=== PATIENT | female | born 1990 | race Caucasian/White ===

== ENCOUNTER 2024-02-17 14:22 | Emergency (ER) | payer BC ==
[~2024-02-17] VITALS: Ht 162.6 cm; Wt 63.8 kg
[2024-02-17 15:17] LABS: Urine Amorphous Crystal FEW /hpf (None Seen); Urine Bacteria FEW /hpf (None Seen); Urine Blood 2+ /uL (Negative); Urine Clarity Clear (Clear); Urine Color Colorless (Yellow); Urine Protein, UAD Negative (Negative); Urine Specific Gravity 1.014 (1.001-1.035); Urine Urobilinogen Normal (Negative); Urine WBC 5 /hpf (0 - 5)
[2024-02-17 15:26] VITALS: BP 113/76; PULSE 95; RESP 18; TEMP 99.7; O2SAT 97
[2024-02-17 15:26] LABS: Basophils # (auto) 0 10 ^3/uL (0-0.2); Basophils % (auto) 0.3 % (0.0-2.0); Eosinophils # (auto) 0 10 ^3/uL (0-0.8); Eosinophils % (auto) 0.4 % (0.0-7.0); Hematocrit 33.9 % (36.0-46.0); Hemoglobin 11.6 g/dL (12.2-16.2); Lymphocytes # (auto) 1.9 10 ^3/uL (0.4-5.4); Mean Corpuscular Hemoglobin 30.3 pg (28.0-32.0); Mean Corpuscular Hgb Conc. 34.1 g/dL (32.0-36.0); Mean Corpuscular Volume 88.9 fL (80.0-100.0); Monocytes # (auto) 0.7 10 ^3/uL (0-1.3); Monocytes % (auto) 5.9 % (0.0-12.0); Neutrophils # (auto) 9.8 10 ^3/uL (1.6-8.6); Neutrophils % (auto) 78.4 % (37.0-80.0); Red Blood Cells 3.81 10^6/uL (4.0-5.20); Red Cell Distribution Width 13.6 % (11.8-14.3); White Blood Cell 12.5 10^3/uL (4.4-10.8)
[2024-02-17 15:34] LABS: Anion Gap 3 (5-15); Carbon Dioxide 27 mmol/L (20-30); Chloride 107 mmol/L (98-107); Potassium 3.6 mmol/L (3.5-5.1); Sodium 137 mmol/L (136-145)
[2024-02-17 15:35] LABS: Calcium 9.5 mg/dL (8.5-10.1)
[2024-02-17 15:39] LABS: Glucose 100 mg/dL (74-106)
[2024-02-17 15:40] LABS: BUN/Creatinine Ratio 12.7 (10.0-20.0); Blood Urea Nitrogen 8 mg/dL (9-23)
[2024-02-17] MEDS ORDERED: cefTRIAXone 1GM/50ML D5W 50 ML IV ONE (15:45)
[2024-02-17] MEDS: SODIUM CHLORIDE 0.9% 1,000 ML IV ONE (16:14)
[2024-02-17] MEDS: ACETAMINOPHEN 500 MG TAB PO ONE (16:28)
[2024-02-17] MEDS: cefTRIAXone SOD 1,000 MG VL IM ONE (16:48)
== END 2024-02-17 17:18 | disposition home or self-care (01) ==
LOC: ER 14:22
DX: O23.12 Infections of bladder in pregnancy, second trimester (principal); R10.2 Pelvic and perineal pain; Z3A.19 19 weeks gestation of pregnancy; Z88.0 Allergy status to penicillin; Z88.1 Allergy status to other antibiotic agents
CPT/HCPCS: 36415; 76805; 80048; 81001; 84702; 85025; 96360; 99284; J0696; J7030

== ENCOUNTER → 2024-05-08 | Outpatient (CLI) | payer BC ==
[2024-05-08 06:59] LABS: Basophils # (auto) 0 10 ^3/uL (0-0.2); Basophils % (auto) 0.3 % (0.0-2.0); Eosinophils # (auto) 0.1 10 ^3/uL (0-0.8); Eosinophils % (auto) 0.7 % (0.0-7.0); Hemoglobin 12.4 g/dL (12.2-16.2); Lymphocytes % (auto) 19.1 % (10.0-50.0); Mean Corpuscular Hemoglobin 32.5 pg (28.0-32.0); Mean Corpuscular Hgb Conc. 35.4 g/dL (32.0-36.0); Mean Corpuscular Volume 91.7 fL (80.0-100.0); Monocytes # (auto) 0.8 10 ^3/uL (0-1.3); Monocytes % (auto) 7.3 % (0.0-12.0); Neutrophils # (auto) 7.7 10 ^3/uL (1.6-8.6); Neutrophils % (auto) 72.6 % (37.0-80.0); Platelet Count (auto) 252 10^3/uL (140-450); Red Blood Cells 3.82 10^6/uL (4.0-5.20); Red Cell Distribution Width 13.6 % (11.8-14.3); White Blood Cell 10.6 10^3/uL (4.4-10.8)
[2024-05-08 10:20] LABS: Ferritin 22.1 ng/mL (10-291); Free T4 (Free Thyroxine) 0.97 ng/dL (0.89-1.76)
[2024-05-10 05:08] LABS: RPR Non Reactive (Non Reactive)
== END | disposition home or self-care (01) ==
LOC: LAB 05:56
PROVIDERS: ATTEND Nurse Practitioner Women's Health
DX: Z34.03 Encounter for supervision of normal first pregnancy, third trimester (principal); Z3A.30 30 weeks gestation of pregnancy
CPT/HCPCS: 36415; 82306; 82728; 82951; 83036; 83540; 84439; 84443; 85025; 86592

== ENCOUNTER 2024-07-13 08:06 | Observation (INO) | payer BC ==
[~2024-07-13] VITALS: Ht 160 cm; Wt 81.2 kg
--- NOTE | 2024-07-13 09:08 | DVH ---
Procedure: US BIOPHYSICAL PROFILE 07/13/2024 08:24 AM Indication:Term Gestation. Comparison: None Technique: Sonogram of gravid uterus utilizing grayscale and color techniques. FINDINGS: Single living intrauterine gestation. Presentation: Cephalic Placenta: Posterior without previa or abruption heart rate: 140 bpm MAICO: 21.4 cm, DVP: 6.6 cm Maternal cervix: Not visualized Biophysical Profile: breathing score: 2 movement score: 2 tone: 2 Quantitative MAICO score: 2 Total score: 8/8 IMPRESSION: 1. Singleliving as above. 2. Biophysical profile score: 8/8.
--- NOTE | 2024-07-13 12:39 | DVHDS2 ---
Physician Discharge Progress N Final Diagnosis: term preg Operations or Procedures: Operations or Procedures nst,sono Other Interventions Other Interventions refuses exam and induction Condition on Discharge: Good Disposition: Home Discharge Instructions: Diet: Regular Activity: Light activity Medications: na Follow Up Care: Specialist: 2d Discharge Statement: "Patient was advised to return to the ER or call 911 if any headaches, dizziness, shortness of breath, chest pain, abdominal pain, bleeding, fevers, or worsening of medical condition. Patient was counseled about treatment plan, medications, possible side effects, patientverbalized understanding. All questions were answered to the best of my ability. This discharge took greater then 30 minutes in planning, reviewing documentation, counseling the patient, and discussing with other team members." IRIS LESLIE DO Jul 13, 2024 12:39
== END 2024-07-13 09:43 | disposition home or self-care (01) ==
LOC: EEVIPCON → UNDOADMOB 08:06 → LDRP 08:06 → UNDODISOB 09:43
PROVIDERS: ADMIT Obstetrics & Gynecology; ATTEND Obstetrics & Gynecology
DX: O48.0 Post-term pregnancy (principal); Z88.0 Allergy status to penicillin; Z91.040 Latex allergy status; Z91.02 Food additives allergy status; Z79.899 Other long term (current) drug therapy
CPT/HCPCS: 59025; 76818; 81002; 94760; G0378

== ENCOUNTER 2024-07-14 10:38 | Inpatient (IN) | payer BC, MEDICAID ==
[~2024-07-14] VITALS: Ht 160 cm; Wt 61.2 kg
[2024-07-14 13:54] LABS: Amphetamine Screen, Urine Neg (NEGATIVE); Barbiturate Scree,Urine Neg (NEGATIVE); Benzodiazephine Screen, Urine Neg (NEGATIVE); Cocaine Screen, Urine Neg (NEGATIVE)
[2024-07-14 13:55] LABS: Cannabinoid Screen, Urine Neg (NEGATIVE); Opiate Scree,Urine Neg (NEGATIVE); Phencyclidine Screen, Urine Neg (NEGATIVE)
[2024-07-14 14:00] LABS: Urine Bacteria FEW /hpf (None Seen); Urine Blood 2+ /uL (Negative); Urine Clarity Clear (Clear); Urine Color Light-Yellow (Yellow); Urine Mucus FEW (None Seen); Urine Protein, UAD Negative (Negative); Urine Urobilinogen Normal (Negative); Urine WBC 1 /hpf (0 - 5)
[2024-07-14] MEDS ORDERED: PHISODERM TOP SOLN 240ML BTL TOP PRN (16:15)
[2024-07-14] MEDS ORDERED: WITCH HAZEL-GLYCERIN PAD TOP PRN (16:15)
[2024-07-14] MEDS ORDERED: LIDOCAINE 2%HCL (LOCAL ANESTH.) INJ 20ML MDV IJ PRN (16:15)
[2024-07-14] MEDS ORDERED: DERMOPLAST 60ML BOTTLE TOP PRN (16:15)
[2024-07-14] MEDS ORDERED: BUTORPHANOL TARTRATE 2 MG/1 ML VIAL IV PRN ×2 (16:15)
[2024-07-14 16:59] LABS: Basophils # (auto) 0.1 10 ^3/uL (0-0.2); Basophils % (auto) 0.7 % (0.0-2.0); Eosinophils # (auto) 0 10 ^3/uL (0-0.8); Eosinophils % (auto) 0.1 % (0.0-7.0); Hematocrit 36.5 % (36.0-46.0); Hemoglobin 12.9 g/dL (12.2-16.2); Lymphocytes # (auto) 1.6 10 ^3/uL (0.4-5.4); Lymphocytes % (auto) 11.4 % (10.0-50.0); Mean Corpuscular Hemoglobin 31.9 pg (28.0-32.0); Mean Corpuscular Hgb Conc. 35.3 g/dL (32.0-36.0); Mean Corpuscular Volume 90.4 fL (80.0-100.0); Monocytes # (auto) 0.9 10 ^3/uL (0-1.3); Monocytes % (auto) 5.9 % (0.0-12.0); Neutrophils # (auto) 11.9 10 ^3/uL (1.6-8.6); Neutrophils % (auto) 81.9 % (37.0-80.0); Nucleated Red Blood Cells % 0.1 %; Platelet Count (auto) 233 10^3/uL (140-450); Red Blood Cells 4.03 10^6/uL (4.0-5.20); Red Cell Distribution Width 13.1 % (11.8-14.3); White Blood Cell 14.5 10^3/uL (4.4-10.8)
[2024-07-14 17:15] LABS: INR 0.94 (0.9-1.15); Partial Thromboplastin Time 25.2 SEC (24.5-34.5)
[2024-07-14 17:16] LABS: Alanine Aminotransferase 24 U/L (7-40); Albumin 4.1 g/dL (3.2-4.8); Alkaline Phosphatase 89 U/L (46-116); Anion Gap 10 (5-15); Aspartate Aminotransferase 14 U/L (13-40); BUN/Creatinine Ratio 14.3 (10.0-20.0); Bilirubin, Total 0.3 mg/dL (0.2-1.0); Blood Urea Nitrogen 11 mg/dL (9-23); Calcium 10.2 mg/dL (8.7-10.4); Carbon Dioxide 22 mmol/L (20-31); Chloride 105 mmol/L (98-107); Glucose 112 mg/dL (74-106); Potassium 3.6 mmol/L (3.5-5.1); Sodium 137 mmol/L (136-145); Total Protein 6.7 g/dL (5.7-8.2)
[2024-07-14] MEDS ORDERED: CARBOPROST TROMETHAMINE 250 MCG/1ML VIAL IM ONE (20:45)
[2024-07-14] MEDS ORDERED: METHYLERGONOVINE MALEATE 0.2 MG/ML AMP IM ONE (20:45)
[2024-07-14] MEDS ORDERED: DIPHENOXYLATE W/ATROPINE 2.5 MG TAB PO PRN (20:45)
[2024-07-14] MEDS ORDERED: ePHEDrine SULFATE 50 MG/ML AMP IV ONE (23:15)
[2024-07-14] MEDS ORDERED: NALOXONE HCL 0.4 MG/ML VIAL IV ONE (23:15)
[2024-07-15] MEDS: fentaNYL CITRATE 100 MCG/2 ML VL ONE (00:57)
[2024-07-15] MEDS: ROPIVACAINE HCL 200 ML ONE (00:58)
[2024-07-15] MEDS: LACTATED RINGER'S 1,000 ML IV SCH (00:59)
[2024-07-15] MEDS: LACTATED RINGER'S 1,000 ML IV ONE (00:59)
[2024-07-15] MEDS: CLINDAMYCIN 600MG IV 50 ML IV SCH (01:00)
[2024-07-15 07:06] LABS: RPR Non Reactive (Non Reactive)
[2024-07-15] MEDS ORDERED: METHYLERGONOVINE MALEATE 0.2 MG/ML AMP IM ONE (11:25)
[2024-07-15] MEDS: miSOPROStol 100 mcg TAB ONE (11:25)
[2024-07-15] MEDS: IBUPROFEN 600 MG TAB PO PRN (12:50)
[2024-07-15 13:07] LABS: Chlamydia Trachomatis, NAA Negative (Negative); Neisseria gonorrhoeae, NAA Negative (Negative)
[2024-07-15] MEDS: ONDANSETRON ODT 4 MG TAB PO PRN (13:18)
[2024-07-15] MEDS: METHYLERGONOVINE MALEATE 0.2 MG/ML AMP IM ONE (14:14)
[2024-07-15] MEDS: miSOPROStol 100 mcg TAB PR PRN (14:15)
[2024-07-15] MEDS: miSOPROStol 100 mcg TAB SL PRN (14:17)
[2024-07-15] MEDS: LACT. RINGERS/OXYTOCIN 20UNITS 500 ML IV ONE ×2 (14:22→14:23)
[2024-07-15 15:30] VITALS: BP 117/77; PULSE 109; RESP 18; TEMP 100.2; O2SAT 95
[2024-07-15] MEDS: ACETAMINOPHEN 325 MG TAB PO PRN (16:37)
[2024-07-15 19:20] VITALS: BP 128/69; PULSE 96; RESP 16; TEMP 99.2; O2SAT 95
[2024-07-15 23:20] VITALS: BP 138/80; PULSE 86; RESP 16; TEMP 98.5; O2SAT 96
[2024-07-15] MEDS: RHO (D) IMMUNE GLOBULIN 300 MCG INJ IM ONE (23:22)
[2024-07-15 23:23] VITALS: BP 128/69; PULSE 96; RESP 16; TEMP 99.2
[2024-07-16] MEDS: DOCUSATE SOD 100 MG CAP PO SCH (02:15)
[2024-07-16 02:45] VITALS: BP 127/90; PULSE 84; RESP 16; TEMP 98.6; O2SAT 96
[2024-07-16 07:00] VITALS: BP 130/78; PULSE 87; RESP 16; TEMP 97.7; O2SAT 96; O2SAT 97
[2024-07-16 08:05] VITALS: BP 122/60; PULSE 87; RESP 16; TEMP 97.7; O2SAT 96
[2024-07-16 08:24] VITALS: BP 126/74; PULSE 87; RESP 16; TEMP 97.7; O2SAT 97
[2024-07-16 11:00] VITALS: BP 119/72; PULSE 70; RESP 16; TEMP 98.4; O2SAT 98
[2024-07-16 12:00] VITALS: BP 135/63; PULSE 60; RESP 18; TEMP 98.1; O2SAT 100
[2024-07-17 13:07] LABS: Treponema Pallidum Ab LC Non Reactive (Non Reactive)
== END 2024-07-16 13:10 | disposition home or self-care (01) | DRG 807 ==
LOC: LDRP 10:38 → UNDOADMOB 10:38 → LDRP 10:46 → OBSVTOIN 16:10 → LDRP 16:14
PROVIDERS: ADMIT Obstetrics & Gynecology; ATTEND Obstetrics & Gynecology
PROC: 10D07Z6 Extraction of Products of Conception, Vacuum, Via Natural or Artificial Opening (ICD-10-PCS; principal; 2024-07-15)
PROC: 0KQM0ZZ Repair Perineum Muscle, Open Approach (ICD-10-PCS; 2024-07-15)
PROC: 0W8NXZZ Division of Female Perineum, External Approach (ICD-10-PCS; 2024-07-15)
PROC: 3E0S3BZ Introduction of Anesthetic Agent into Epidural Space, Percutaneous Approach (ICD-10-PCS; 2024-07-15)
PROC: 00HU33Z Insertion of Infusion Device into Spinal Canal, Percutaneous Approach (ICD-10-PCS; 2024-07-15)
DX: O48.0 Post-term pregnancy (principal); Z37.0 Single live birth; Z3A.40 40 weeks gestation of pregnancy; O70.1 Second degree perineal laceration during delivery; O69.81X0 Labor and delivery complicated by cord around neck, without compression, not applicable or unspecified
CPT/HCPCS: 36415; 59025; 59409; 59414; 62282; 80053; 80307; 81001; 81002; 85025; 85610; 85730; 86592; 86780; 86803; 86850; 86870; 86900; 86901; 90384; 94760; 96360; 96361; 96366; 96372; G0378; J2590; J3490; Q0162